=== PATIENT | female | born 1955 | race Caucasian/White ===

== ENCOUNTER 2016-09-13 11:22 | Observation (INO) ==
[2016-09-13] MEDS ORDERED: Ipratropium/Albuterol Neb 3 ML IH ONE (11:54)
[2016-09-13 12:12] LABS: Basophils % 0.3 %; Eosinophils # 0.1 K/mcL (0.0-0.6); Eosinophils % 3.5 %; Hematocrit 35.9 % (35.3-44.9); Immature Granulocytes % 0.5 % (0-4); Lymphocytes # 1.4 K/mcL (0.6-4.6); Lymphocytes % 34.4 %; Mean Corpuscular HGB Conc 33.4 g/dL (31.6-35.5); Mean Corpuscular Hemoglobin 29.4 pg (28.0-33.3); Mean Platelet Volume 9.6 fL (9.4-12.4); Monocytes # 0.3 K/mcL (0.0-1.3); Neutrophils # 2.1 K/mcL (1.6-8.9); Platelet Count 186 K/mcL (140-400); Red Blood Count 4.08 M/mcL (3.82-4.97); Red Cell Distribution Width 12.8 % (11.5-14.5); Segmented Neutrophils % 53.3 %
[2016-09-13 12:26] LABS: BUN/Creatinine Ratio 18 (6-26); Blood Urea Nitrogen 14 mg/dL (7-20); Calcium 8.8 mg/dL (8.6-10.8); Carbon Dioxide 25 mEq/L (19-29); Chloride 108 mEq/L (98-109); Glucose 86 mg/dL (70-99); Osmolality,Calculated 290 (280-300); Potassium 3.9 mEq/L (3.5-4.5); Sodium 140 mEq/L (136-145); eGFR For African Americans > 60 (> 60); eGFR For Non-African Americans > 60 (> 60)
--- NOTE | 2016-09-13 12:33 | Emergency Department Note ---
Disposition Clinical Impression: Dyspnea, unspecified Qualifiers: Dyspnea type: unspecified Qualified Code(s): R06.00 - Dyspnea, unspecified Disposition: Admitted As Inpatient Condition: Good Referrals: NO,PCP [Non-Partnered Physician] - Forms: ED Satisfaction Letter Time of Disposition: 14:17 General Adult HPI - General Chief complaint: ED Shortness of Breath/Dyspnea Stated complaint: SIA, Swelling, Cough Time Seen by Provider: 09/13/16 11:54 Source: patient, family Limitations: no limitations Nursing Notes Reviewed: Yes Vital Signs Reviewed: Yes - History of Present Illness HPI Narrative: 61-year-old female presents ambulatory with her for dyspnea on exertion shortness of breath swelling to the hands and feet. 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 States that for the past 4 days she has been having increasing breathlessness slight chest discomfort and swelling of the hands and feet and face. Patient recently was started on thyroid medicine less than a month ago and she ran up and saw that one of the side effects of the thyroid medicine was breathlessness and/or palpitations and swelling of the hands and feet. Patient denies any other new medicines other than Daypro and thyroid medicine at this time. Patient had a stress test within the past several years that was treadmill and "was okay". Patient denies any fever, chills, recent travel, ill contacts or exotic foods. Patient states that about 4 days ago she was outside and using a lawnmower cut her lawn and another family member's lawn. Of note it was high temperatures and high humidity last week with a very high index. Patient noted over the past year also she has been having about a 30 pound weight gain and she attributes that to decreased activity. Patient states that she has a daughter who has had a blood clot but in her legs and that was secondary to and she is on Coumadin for that and it has been almost a year. denies any weakness or numbness headache visual disturbances or skin changes. Pain Scale: 2 - Related Data Home Medications Medication Instructions Recorded Confirmed Aspirin [Lo-Dose Aspirin EC] 81 mg PO DAILY 03/07/16 06/02/16 BuPROPion [Wellbutrin] 25 mg PO DAILY 03/07/16 06/02/16 Esomeprazole Magnesium [Nexium] 20 mg PO DAILY 03/07/16 06/02/16 TraZODone 25 mg PO HS 03/07/16 06/02/16 ALPRAZolam [Xanax 0.25 MG Tablet] 0.25 mg PO BID 06/02/16 06/02/16 Cyclobenzaprine HCl 2.5 - 5 mg PO HS PRN 06/02/16 06/02/16 Estrogens, Conjugated [Premarin 1 appl VG QAM 06/02/16 06/02/16 Cream] Tramadol HCl [Ultram] 50 mg PO BID PRN 06/02/16 06/02/16 Previous Rx's Medication Instructions Recorded Amoxicillin 875 mg PO BID #20 tablet 08/12/16 Eliel/Poly/HC *EAR* SUSP 1 drop RIGHT EAR QID 7 Days 08/12/16 [Cortisporin *EAR* SUSP] Allergies Allergy/AdvReac Type Severity Reaction Status Date / Time No Known Allergies Allergy Verified 12/11/14 09:33 All systems ED: reviewed and negative except as stated. Constitutional: Denies: fever, chills Cardiovascular: Reports: palpitations, dyspnea on exertion Respiratory: Reports: dyspnea Endocrine: Reports: fatigue Allergic/Immunologic: Reports: facial swelling Past Medical History - Past Medical History Attestation: Yes The following information was validated with the patient. 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 WOUND history: Reports: bilateral tubal ligation - Social History Smoking Status: Never smoker Smokeless Tobacco Status: No Alcohol use: Reports: none Drug use: Reports: none Physical Exam - General Limitations: no limitations General appearance: alert, in distress (Speech dyspnea) - Head Head exam: atraumatic, normocephalic - Eye Eye exam: Present: normal appearance, PERRL - ENT ENT exam: normal exam, normal oropharynx - Neck Neck exam: Present: normal inspection, full ROM - Chest Chest inspection: Present: normal inspection, symmetric chest wall rise - Respiratory Respiratory exam: Present: normal lung sounds bilaterally - Cardiovascular Cardiovascular exam: Present: regular rate, normal rhythm - Abdominal Exam Abdominal exam: Present: soft, Non-Tender - Extremities Exam Extremities exam: Present: normal inspection, full ROM, pedal edema. Absent: joint swelling - Expanded Lower Extremity Exam Neurovascular/Tendon exam: Present: normal capillary refill Gait: observed and normal - Back Exam Back exam: Present: normal inspection, full ROM - Neurological Exam Neurological exam: Present: alert, oriented X3, CN II-XII intact - Psychiatric Psychiatric exam: Present: normal affect, normal mood - Skin Skin exam: Present: warm, dry, intact Course - Reevaluation(s) Reevaluation #1: ED workup is completed. Labs essentially within normal limits aside from a slightly elevated BNP in the 130s, and a slightly low white count at 4.0. Chest x-ray read by radiology within normal limits troponin negative TSH within normal limits. D-dimer within normal limits. Chemistry otherwise within normal limits. Due to the patient having continued symptoms of dyspnea and hypercapnia at rest with oxygen in bed. We decided the best course of action and save this was admission for observation and perhaps further testing to include possibly echocardiogram. Patient and spouse are comfortable with this plan. Meal tray ordered for patient. Admission orders entered. Patient stable Vital Signs Temperature 97.7 F 09/13/16 11:26 Pulse Rate 81 09/13/16 11:26 Respiratory Rate 16 09/13/16 11:26 Blood Pressure 149/89 09/13/16 11:26 O2 Sat by Pulse Oximetry 100 09/13/16 11:26 Temperature 97.7 F 09/13/16 11:26 Pulse Rate 82 09/13/16 12:54 Respiratory Rate 22 09/13/16 12:54 Blood Pressure 132/90 09/13/16 12:54 O2 Sat by Pulse Oximetry 99 09/13/16 12:54 Oxygen Delivery Oxygen Delivery Nasal Cannula Medical Decision Making - Medical Records Medical records reviewed: Yes I reviewed the patient's medical records. - Lab Data Lab results reviewed: Yes I reviewed the patient's lab results. Result diagrams: 09/13/16 12:04 09/13/16 12:04 Lab Results 09/13/16 09/13/16 09/13/16 Range/Units 12:04 12:04 12:04 WBC 4.0 L (4.3-11.1) K/mcL RBC 4.08 (3.82-4.97) M/mcL Hgb 12.0 (11.5-15.4) g/dL Hct 35.9 (35.3-44.9) % MCV 88.0 (83.0-100.0) fL MCH 29.4 (28.0-33.3) pg MCHC 33.4 (31.6-35.5) g/dL RDW 12.8 (11.5-14.5) % Plt Count 186 (140-400) K/mcL MPV 9.6 (9.4-12.4) fL Immature Gran % 0.5 (0-4) % Seg Neutrophils % 53.3 % Lymphocytes % 34.4 % Monocytes % 8.0 % Eosinophils % 3.5 % Basophils % 0.3 % Neutrophils # 2.1 (1.6-8.9) K/mcL Lymphocytes # 1.4 (0.6-4.6) K/mcL Monocytes # 0.3 (0.0-1.3) K/mcL Eosinophils # 0.1 (0.0-0.6) K/mcL Basophils # 0.0 (0.0-0.2) K/mcL D-Dimer (0-500) ng/mLFEU Sodium 140 (136-145) mEq/L Potassium 3.9 (3.5-4.5) mEq/L Chloride 108 (98-109) mEq/L Carbon Dioxide 25 (19-29) mEq/L BUN 14 (7-20) mg/dL Creatinine 0.78 (0.57-1.11) mg/dL Est GFR ( Amer) > 60 (> 60) Est GFR (Non-Af Amer) > 60 (> 60) BUN/Creatinine Ratio 18 (6-26) Glucose 86 (70-99) mg/dL Calculated Osmolality 290 (280-300) Calcium 8.8 (8.6-10.8) mg/dL Troponin I 0.00 (0-0.03) ng/mL B-Natriuretic Peptide (0-100) pg/mL TSH 1.131 (0.350-4.840) mcIU/mL 09/13/16 09/13/16 Range/Units 12:04 12:04 WBC (4.3-11.1) K/mcL RBC (3.82-4.97) M/mcL Hgb (11.5-15.4) g/dL Hct (35.3-44.9) % MCV (83.0-100.0) fL MCH (28.0-33.3) pg MCHC (31.6-35.5) g/dL RDW (11.5-14.5) % Plt Count (140-400) K/mcL MPV (9.4-12.4) fL Immature Gran % (0-4) % Seg Neutrophils % % Lymphocytes % % Monocytes % % Eosinophils % % Basophils % % Neutrophils # (1.6-8.9) K/mcL Lymphocytes # (0.6-4.6) K/mcL Monocytes # (0.0-1.3) K/mcL Eosinophils # (0.0-0.6) K/mcL Basophils # (0.0-0.2) K/mcL D-Dimer 375 (0-500) ng/mLFEU Sodium (136-145) mEq/L Potassium (3.5-4.5) mEq/L Chloride (98-109) mEq/L Carbon Dioxide (19-29) mEq/L BUN (7-20) mg/dL Creatinine (0.57-1.11) mg/dL Est GFR ( Amer) (> 60) Est GFR (Non-Af Amer) (> 60) BUN/Creatinine Ratio (6-26) Glucose (70-99) mg/dL Calculated Osmolality (280-300) Calcium (8.6-10.8) mg/dL Troponin I (0-0.03) ng/mL B-Natriuretic Peptide 134 H (0-100) pg/mL TSH (0.350-4.840) mcIU/mL - Radiology Data Radiology results reviewed: Yes I reviewed the patient's radiology results. - EKG Data EKG #1 EKG attestation: Yes I reviewed and interpreted this EKG. EKG results narrative: Lead EKG interpreted without cardiology shows the following. Sinus rhythm at 75 bpm. NH interval 142 ms, QR religious 89 ms, QT corrected at 404 ms and within normal limits. Patient has no acute ischemic changes noted. Endo acute changes with can. Her prior EKG dated 01/06/2015.
[2016-09-13 13:08] LABS: Thyroid Stimulating Hormone 1.131 mcIU/mL (0.350-4.840)
[2016-09-13] MEDS ORDERED: Acetaminophen 325 MG TABLET PO PRN (14:43)
[2016-09-13] MEDS ORDERED: *HR* HYDROcodone/Acet 5/325 mg TABLET PO PRN (14:43)
[2016-09-13] MEDS ORDERED: Naloxone 0.4 MG/ML INJ IVP PRN (14:43)
[2016-09-13] MEDS ORDERED: Furosemide 20 MG/2 ML VIAL IVP ONE (14:47)
--- NOTE | 2016-09-13 15:02 | Internal Med History&Physical ---
Date of Encounter: 09/13/16 Time of Encounter: 13:50 Assessment and Plan (1) Hypertension Current visit: Yes Status: Acute Patient's blood pressure is high now, with shortness of breath and pedal edema. - We will try low-dose Lasix. - May need to add other hypertension medications if BP is still high. Qualifiers: Hypertension type: essential hypertension Qualified Code(s): I10 - Essential (primary) hypertension (2) DVT prophylaxis Current visit: Yes Status: Acute Heparin subcutaneously (3) Dyspnea, unspecified Current visit: Yes Status: Acute Etiology is undetermined. Patient has pedal edema. Need to rule out CHF or kidney disease. - We will check echocardiogram - Continuous cardiac monitoring, track 3 sets of troponin - Urine analysis with microscope examination. - Try low-dose diuretics. - We will hold new medication NSAID and natural thyroid pill. Patient's TSH and T3-T4 are all within normal limits. Qualifiers: Dyspnea type: unspecified Qualified Code(s): R06.00 - Dyspnea, unspecified Internal Medicine - H&P: HPI Chief complaint: SOB Admitted From: Home Plans for Post Hospital Care: Home History of present illness: Ms. Danielle is a 61 year old female with history of osteoarthritis, meningioma s/ p surgery present to ER for shortness of breath, heart pounding, and bilateral pedal edema for 4 days. Patient said she just started 2 new medication, which is natural thyroid and one NSAID. Patient feels shortness of breath, intermittent heart pounding, and the bilateral pedal edema, which is getting worse in the last 4 days. Patient denies a fever, cough. She denies chest pain but complaining of chest heaviness. Patient also mentioned her blood pressure was increasing in last 6 months. Her current blood pressure is 150/90 level, but her prior pressure 6 months ago was 110/60. Patient came to ER for further management. In the denies orthopnea or paroxysmal nocturnal dyspnea. In ER, chest x-ray and EKG unremarkable. Troponin negative, d-dimer negative. Patient was admitted for further workup and treatment. Past Med Surg Social Fam HX - Past Medical History Medical history: arthritis, GERD, hyperlipidemia, osteoporosis, other Psychiatric history: anxiety - Past Surgical History Surgical History: appendectomy, , orthopedic, other, other - Social History Smoking Status: Never smoker Smokeless Tobacco Status: No Alcohol use: none Drug use: none Internal Medicine - H&P: Meds ALPRAZolam [Xanax 0.5 MG Tablet] 0.5 mg PO HS 09/13/16 [History] Cholecalciferol (D-3) [Vitamin D] 5,000 unit PO DAILY 09/13/16 [History] traZODone [TraZODone] 75 mg PO HS 09/13/16 [History] Allergies No Known Allergies Allergy (Verified 09/13/16 14:49) All Systems PM: A 10-system review of systems was performed and is negative for pertinent findings except as documented above in the HPI. - Constitutional Vitals: Temp Pulse Resp BP Pulse Ox 97.7 F 67 20 138/78 100 09/13/16 11:26 09/13/16 14:25 09/13/16 14:51 09/13/16 14:51 09/13/16 14:25 General appearance: Present: mild distress, A&O X 3, answers questions appropriately - Head Head exam: Present: atraumatic, normocephalic - Eye Eye exam: Present: PERRL, conjuntiva pink, sclera anicteric Pupils: Present: PERRL - Neck Neck exam general surgery: Present: supple, trachea midline. Absent: lymphadenopathy - Respiratory Respiratory exam: Present: CTAB. Absent: accessory muscle use, rales, rhonchi, wheezes - Cardiovascular Cardiovascular exam: Present: RRR, +S1, +S2. Absent: diastolic murmur, gallop, rubs, systolic murmur - GI/Abdominal GI/Abdominal exam: Present: normal bowel sounds, soft, no peritoneal signs. Absent: distended, tenderness - Extremities Exam Extremities exam: Present: pedal edema (Mild pedal edema bilaterally), warm, radial pulses palpable and symetrical. Absent: calf tenderness, cyanotic - Neurological Exam Neurological exam: Present: CN II-XII intact, oriented X3, no focal deficits. Absent: pronater drift, facial droop, speech deficit - Skin Skin exam: Present: dry, intact Internal Med - H&P Results - Labs CBC & Chem 7: 09/13/16 12:04 09/13/16 12:04 - EKG Data -: EKG Interpreted by Myself EKG shows normal: sinus rhythm Rate: normal
--- NOTE | 2016-09-13 16:32 | Electrocardiograph Report ---
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
[2016-09-13] MEDS: *HR* Heparin 5,000 UNIT/ML VIAL SQ SCH (17:56)
[2016-09-14] MEDS: ALPRAZolam 0.25 MG TABLET PO SCH ×2 (00:06→08:19)
[2016-09-14 04:54] LABS: Bilirubin,Urine Negative (Negative); Blood,Urine Negative (Negative); Clarity,Urine Clear (Clear); Color,Urine Yellow (Yellow); Glucose,Urine (UA) Normal (Normal); Ketones,Urine Trace mg/dL (Negative); Leukocyte Esterase,Urine Negative (Negative); Nitrite,Urine Negative (Negative); PH,Urine 6.5 pH Units (5.0-8.0); Protein,Urine Negative (Neg-Trace); Specific Gravity,Urine 1.014 (1.010-1.025); Urobilinogen,Urine Normal (Normal)
[2016-09-14] MEDS: *HR* Heparin 5,000 UNIT/ML VIAL SQ SCH (05:35)
[2016-09-14 07:30] LABS: Basophils % 0.6 %; Eosinophils # 0.2 K/mcL (0.0-0.6); Eosinophils % 4.3 %; Hematocrit 40.9 % (35.3-44.9); Hemoglobin 13.2 g/dL (11.5-15.4); Immature Granulocytes % 0.3 % (0-4); Lymphocytes # 1.5 K/mcL (0.6-4.6); Lymphocytes % 42.2 %; Mean Corpuscular HGB Conc 32.3 g/dL (31.6-35.5); Mean Corpuscular Hemoglobin 28.7 pg (28.0-33.3); Mean Corpuscular Volume 88.9 fL (83.0-100.0); Mean Platelet Volume 10.1 fL (9.4-12.4); Monocytes # 0.3 K/mcL (0.0-1.3); Monocytes % 8.8 %; Neutrophils # 1.5 K/mcL (1.6-8.9); Platelet Count 185 K/mcL (140-400); Red Cell Distribution Width 12.8 % (11.5-14.5); Segmented Neutrophils % 43.8 %
[2016-09-14 08:36] LABS: BUN/Creatinine Ratio 18 (6-26); Blood Urea Nitrogen 14 mg/dL (7-20); Calcium 9.1 mg/dL (8.6-10.8); Carbon Dioxide 25 mEq/L (19-29); Chloride 106 mEq/L (98-109); Glucose 90 mg/dL (70-99); Magnesium 1.9 mg/dL (1.6-2.6); Osmolality,Calculated 290 (280-300); Phosphorous 3.6 mg/dL (2.3-4.7); Sodium 140 mEq/L (136-145); eGFR For African Americans > 60 (> 60); eGFR For Non-African Americans > 60 (> 60)
[2016-09-14] MEDS ORDERED: Furosemide Oral Soln 40 MG/4 ML UDC PO SCH (09:00)
[2016-09-14] MEDS ORDERED: Aspirin Enteric Coated 81 MG Tablet PO SCH (09:00)
[2016-09-14 09:35] LABS: Potassium 3.7 mEq/L (3.5-4.5)
[2016-09-14 11:13] VITALS: BP 114/77
--- NOTE | 2016-09-14 11:37 | Discharge Summary ---
Date of Encounter: 09/14/16 Time of Encounter: 10:00 - Discharge Diagnosis (1) Hypertension Priority: Primary Status: Acute Qualifiers: Hypertension type: essential hypertension Qualified Code(s): I10 - Essential (primary) hypertension (2) DVT prophylaxis Priority: Secondary Status: Acute (3) Dyspnea, unspecified Priority: Primary Status: Acute Qualifiers: Dyspnea type: unspecified Qualified Code(s): R06.00 - Dyspnea, unspecified - Discharge Medications Home Medications: ALPRAZolam [Xanax 0.5 MG Tablet] 0.5 mg PO HS 09/13/16 [History] Cholecalciferol (D-3) [Vitamin D] 5,000 unit PO DAILY 09/13/16 [History] Esomeprazole Magnesium [Nexium 24Hr] 20 mg PO 09/13/16 [History] traZODone [TraZODone] 75 mg PO HS 09/13/16 [History] ALPRAZolam [Xanax 0.25 MG Tablet] 0.25 mg PO BID tab 09/14/16 [Rx] Aspirin Enteric Coated [Aspirin EC] 81 mg PO DAILY 09/14/16 [Rx] hydroCHLOROthiazide [Hydrochlorothiazide] 12.5 mg PO DAILY #30 tablet 09/14/16 [ Rx] Allergies/Adverse Reactions: Allergies No Known Allergies Allergy (Verified 09/13/16 14:49) Procedures/tests Complete & Pending: Procedures Performed prior 72 hours Category Date Time Status EV echocardiogram Routine Y 09/13/16 14:46 Completed - Notes to Outpatient Provider Hydrochlorothiazide 12.5 mg by mouth daily added to her home medication list. Please follow-up blood pressure. Date of admission: 09/13/16 14:17 Primary care physician: Ana Wade DO Discharging clinician: Melissa Green Anticipated date of discharge: 09/14/16 - Patient Status Disposition: Home, Self-Care Condition: Good Functional capacity at discharge: independent ambulation Overall status at discharge: patient is back to baseline - Discharge Instructions Follow Up With: Ana Wade DO [Primary Care Provider] - - Diet and Activity Activity: increase activity as tolerated Diet: advance to your usual diet Interval History: Ms. Danielle is a 61 year old female with history of osteoarthritis, meningioma s/ p surgery present to ER for shortness of breath, heart pounding, and bilateral pedal edema for 4 days. Patient said she just started 2 new medication, which is natural thyroid and one NSAID. Patient feels shortness of breath, intermittent heart pounding, and the bilateral pedal edema, which is getting worse in the last 4 days. Patient denies a fever, cough. She denies chest pain but complaining of chest heaviness. Patient also mentioned her blood pressure was increasing in last 6 months. Her current blood pressure is 150/90 level, but her prior pressure 6 months ago was 110/60. Patient came to ER for further management. In the denies orthopnea or paroxysmal nocturnal dyspnea. In ER, chest x-ray and EKG unremarkable. Troponin negative, d-dimer negative. Patient was admitted for further workup and treatment. Hospital course: Ms. Danielle is a 61 year old female admitted for dyspnea and leg swelling. Patient also was found hypertension in recent 6 weeks. Patient was given Lasix IV once. Echo and urine analysis placed. Results are unremarkable. After treatment, her dyspnea has improved. Her leg swelling has resolved. Will place patient on hydrochlorothiazide on discharge. Patient also was advised to hold natural thyroid pill and to further discuss hormone replacement therapy with her PCP. I saw and examined the patient today. She is awake alert. Vitals are stable. In no acute distress. Shortness of breath has resolved. Oxygen saturation 98% in room air. Respiratory rate 15. Heart rate 72. Patient with discharge home and continue follow-up with PCP as outpatient. - Time Spent with Patient Total time spent providing and/or coordinating discharge services: 40 minutes Greater than 30 minutes - Constitutional Vitals: Temp Pulse Resp BP Pulse Ox 98.0 F 72 15 114/77 98 09/14/16 11:11 09/14/16 11:11 09/14/16 11:11 09/14/16 11:11 09/14/16 11:11 General appearance: Present: A&O X 3, no acute distress, answers questions appropriately - Head Head exam: Present: atraumatic, normocephalic - Eye Eye exam: Present: PERRL, conjuntiva pink, sclera anicteric Pupils: Present: PERRL - Neck Neck exam general surgery: Present: supple, trachea midline. Absent: lymphadenopathy - Respiratory Respiratory exam: Present: CTAB. Absent: accessory muscle use, rales, rhonchi, wheezes - Cardiovascular Cardiovascular exam: Present: RRR, +S1, +S2. Absent: diastolic murmur, gallop, rubs, systolic murmur - GI/Abdominal GI/Abdominal exam: Present: normal bowel sounds, soft, no peritoneal signs. Absent: distended, tenderness - Extremities Exam Extremities exam: Present: warm, radial pulses palpable and symetrical. Absent : calf tenderness, cyanotic, pedal edema - Neurological Exam Neurological exam: Present: CN II-XII intact, oriented X3, no focal deficits. Absent: pronater drift, facial droop, speech deficit - Skin Skin exam: Present: dry, intact
== END 2016-09-14 14:10 | disposition home or self-care (01) ==
LOC: 3BNU 11:22 → EMEROO 11:22 → SUATTDRO 14:17 → 3BNU 14:53
PROVIDERS: ADMIT Internal Medicine; ATTEND Internal Medicine